=== PATIENT | male | born 1940 | race Caucasian/White ===

== ENCOUNTER → 2016-08-20 | Outpatient (CLI) | payer OTHER ==
--- NOTE | 2016-08-20 18:50 | DX ---
Chest, Two Views at 1430 hours History: COPD. Polycythemia Comparison: November 2015 Findings: Cardiac silhouette is within normal range. Atherosclerotic tortuous aorta. Slight hyperinfl ation lungs. Bilateral peribronchial thickening. Moderate lower thoracic compression fractures simila r to previous study. No pneumonia, congestive heart failure, pleural effusion, or pneumothorax. Impression: 1. COPD. 2. Chronic bronchitis. 3. Atherosclerotic tortuous aorta. 4. No acute pneumonia. 5. Lower thoracic to moderate compression fractures similar to previous study. Consider DEXA bone sca n evaluation.
== END ==
LOC: FLAB 14:31
PROVIDERS: ATTEND Internal Medicine Pulmonary Disease
DX: J44.9 Chronic obstructive pulmonary disease, unspecified (principal); I70.0 Atherosclerosis of aorta

== ENCOUNTER → 2017-05-27 | Outpatient (CLI) | payer OTHER | LOC: FIMAGING 14:19 | PROVIDERS: ATTEND Internal Medicine Rheumatology | DX: M81.0 Age-related osteoporosis without current pathological fracture (principal); Z79.890 Hormone replacement therapy ==